=== PATIENT | female | born 1955 | race Caucasian/White ===

== ENCOUNTER 2016-12-12 16:56 | Emergency (ER) | payer OTHER ==
[~2016-12-12] VITALS: Ht 170.2 cm; Wt 115.7 kg
[~2016-12-12 16:56] MED LIST: ARIMIDEX1 MG PO; COUMADIN4 MG PO; FLEXERIL10 MG PO; IMITREX50 MG PO; LOFIBRA,TRIGLI160 MG PO; SIMVASTATIN40 MG PO; TYLENOL REGULA325 MG PO; ULTRAM50 MG PO; VENLAFAXINE HCL75 M3 PO
[2016-12-12 17:51] LABS: HEMATOCRIT 26.5 % (36.0-46.0); MCHC 28.3 G/DL (30.0-36.0); MCV 67.1 FL (83-99); MEAN PLAT.VOLUME 10.7 uM^3 (9.5-12.4); PLATELET COUNT 433 K/uL (156-360); RBC DIS.WIDTH-CV 18.4 % (11.8-14.6); RBC DIS.WIDTH-SD 43.3 % (39-53); RED BLOOD COUNT 3.95 M/uL (3.80-5.20); WHITE BLOOD COUNT 5.3 K/uL (4.1-10.2)
[2016-12-12 17:54] LABS: CHLORIDE 109 mEq/L (99-109); INTER. NORMALIZED RATIO 1.7; POTASSIUM 3.9 mEq/L (3.7-5.4); PROTHROMBIN TIME 18.5 SEC (10.2-12.9); SODIUM 142 mEq/L (136-147)
[2016-12-12 17:55] LABS: GLUCOSE 111 mg/dL (70-99)
[2016-12-12 17:56] LABS: PTT 29.8 SEC (25-37)
[2016-12-12 17:57] LABS: ANION GAP 10 MEQ/L (2-14)
[2016-12-12 17:59] LABS: GFR ESTIMATE (CALCULATED) > 59 mL/min/
[2016-12-12 18:00] LABS: UREA NITROGEN (BUN) 14 mg/dL (9-23)
[2016-12-12 20:48] VITALS: BP 120/71
== END 2016-12-12 20:49 | disposition home or self-care (01) ==
LOC: EME 16:56
DX: I82.812 Embolism and thrombosis of superficial veins of left lower extremity (principal); D64.9 Anemia, unspecified; E78.5 Hyperlipidemia, unspecified; Z86.718 Personal history of other venous thrombosis and embolism; Z79.01 Long term (current) use of anticoagulants; Z88.6 Allergy status to analgesic agent
CPT/HCPCS: 80048; 85027; 85610; 85730; 93971; 99281; 99284

== ENCOUNTER → 2017-05-24 | Outpatient (CLI) | payer OTHER ==
[~2017-05-24] MED LIST changes: +CEFADROXIL500 MG PO; +XARELTO20 MG PO; +ZETIA10 MG PO
== END | disposition home or self-care (01) ==
LOC: RAD 08:59
DX: K44.9 Diaphragmatic hernia without obstruction or gangrene (principal); K80.20 Calculus of gallbladder without cholecystitis without obstruction
CPT/HCPCS: 74250